=== PATIENT | male | born 1960 | race Caucasian/White ===

== ENCOUNTER → 2016-05-14 | Outpatient (CLI) | payer OTHER | END | disposition home or self-care (01) | LOC: PCVCIMAG 10:18 | PROVIDERS: ATTEND Internal Medicine Cardiovascular Disease | DX: I10 Essential (primary) hypertension (principal); Z82.49 Family history of ischemic heart disease and other diseases of the circulatory system | CPT/HCPCS: 93325; 93351 ==

== ENCOUNTER → 2018-03-16 | Outpatient (CLI) | payer OTHER ==
--- NOTE | 2018-03-16 11:38 | PCVCIMAG ---
APPROVED REPORT Study performed: 03/16/2018 10:18:39 Exam: Stress Echocardiogram Indication: Chest pain, HTN, fam hx CAD Patient Location: Echo lab Stress Nurse: Chanda Pineda RN Status: routine Ht: 6 ft 2 in HR: 83 bpm BP: 150/100 mmHg Rhythm: NSR Procedure The patient underwent an Exercise Stress Test using the Rinku Protocol. Blood pressure, heart rate, and EKG were monitored. An Echocardiogram was performed by seed laboratory technician in four stages in quad fashion. At peak stress, four selected images were obtained and placed side by side with resting images for comparison. Stress Test Details Stress Test: Exercise stress testing was performed using a Rinku protocol. HR Resting HR: 83 bpmMax Heart Rate (APMHR): 165 bpm Max HR Achieved: 181 bpmTarget HR (85% APMHR): 140 bpm % of APMHR: 109 Recovery HR: 115 bpm HR response to stress: Normal HR response to stress BP Resting BP: 150/100 mmHg Max BP: 210/96 mmHg Recovery BP: 154/106 mmHg BP response to stress: Abnormal hypertensive response to stress. ECG Resting ECG: Sinus Rhythm Stress ECG: Sinus Rhythm ST Change: Normal Arrhythmia: isolated PVCs Recovery ECG: Sinus Rhythm Recovery ST Change: Normal Recovery Arrhythmia: None Clinical Reason for Termination: Maximal effort, Dyspnea Stress Symptoms: Chest pain- non limiting, did not change with exercise Exercise duration: 9 min 40 sec Highest Stage Achieved: Stage 4: 4.2 mph at 16% grade. Exercise capacity: 12.3 METs Overall Exercise Capacity for Age: Normal Scale: Active Angina Score: Non-Limiting Pre-Stress Echo The resting Echocardiogram showed normal left ventricular contractility with an estimated Ejection Fraction of about >55%. Normal wall motion in all segments on baseline images. Post-Stress Echo The stress Echocardiogram showed normal left ventricular contractility with an estimated Ejection Fraction of about 65%. Normal augmentation of wall motion in all segments on post stress images. Clinical No clinical or ECG evidence for ischemia. Conclusion Clinical Response: Non-ischemic Exercise Capacity: Average Stress ECG Response: Non-ischemic Stress Echo Images: Non-ischemic The left ventricle is normal in size and wall thickness in both the rest and stress images. Other Information Study Quality: Adequate <Conclusion> The left ventricle is normal in size and wall thickness in both the rest and stress images.
== END | disposition home or self-care (01) ==
LOC: PCVCIMAG 10:17
PROVIDERS: ATTEND Internal Medicine Cardiovascular Disease
DX: I10 Essential (primary) hypertension (principal); R42 Dizziness and giddiness; G47.39 Other sleep apnea; R07.89 Other chest pain; E78.00 Pure hypercholesterolemia, unspecified; Z82.49 Family history of ischemic heart disease and other diseases of the circulatory system
CPT/HCPCS: 93325; 93351